=== PATIENT | female | born 1990 | race American Indian/Alaskan Native ===

== ENCOUNTER 2019-10-07 18:17 | Emergency (ER) | payer SELFPAY ==
[2019-10-07 18:37] VITALS: BP 136/82
--- NOTE | 2019-10-07 18:37 | Event Note ---
ED Screening Note Date of service: 10/07/19 Time: 18:34 ED Screening Note: This is a 29 y.o. F. that presents to the ER with vaginal bleeding. Reports spotting for 3 weeks that increased today. LMP 09/10/2019, A1 Recent positive home test. No care. This initial assessment/diagnostic orders/clinical plan/treatment(s) is/are subject to change based on patients health status, clinical progression and re- assessment by fellow clinical providers in the ED. Further treatment and workup at subsequent clinical providers discretion. Patient/guardian urged not to elope from the ED as their condition may be serious if not clinically assessed and managed. Initial orders include: Labs OB US
[2019-10-07 19:00] LABS: Basophils % (Auto) 0.8 % (0.0-1.8); Eosinophils # (Auto) 0.1 K/mm3 (0.0-0.4); Hemoglobin 11.3 gm/dl (10.1-14.3); Lymphocytes # (Auto) 2.5 K/mm3 (1.2-5.4); Lymphocytes % (Auto) 42.5 % (13.4-35.0); Mean Corpuscular HGB Conc 33 % (30-34); Mean Corpuscular Volume 75 fl (79-97); Monocytes # (Auto) 0.5 K/mm3 (0.0-0.8); Monocytes % (Auto) 8.7 % (0.0-7.3); Platelet Count 380 K/mm3 (140-440); Red Blood Count 4.52 M/mm3 (3.65-5.03); Red Cell Distribution Width 18.2 % (13.2-15.2)
[2019-10-07 20:27] LABS: Bacteria,Urine 1+ /HPF (Negative); Bilirubin,Urine NEG (Negative); Blood,Urine LG (Negative); Color,Urine Yellow (Yellow); Mucus,Urine FEW /HPF; Protein,Urine <15 mg/dL mg/dL (Negative); Urobilinogen,Urine < 2.0 mg/dL (<2.0)
--- NOTE | 2019-10-07 20:47 | Emergency Department Report ---
ED Female HPI - General Chief complaint: Vaginal Bleeding Stated complaint: POSS MISCARRIAGE Time Seen by Provider: 10/07/19 18:34 Source: patient Mode of arrival: Ambulatory Limitations: No Limitations - History of Present Illness Initial comments: Patient is a A1 29-year-old -[place] female who presents to the ED with complaint of acute onset persistent suprapubic pressure, urinary frequency and urgency and vaginal spotting for the last 1 week, worse in the last 12 hours whereby she was having heavy vaginal bleeding with clots. Patient states that her last menstrual cycle was September 16 to the and that it is always regular. Patient unsure of what the etiology of the vaginal bleeding would be. Patient states that she is not on any control at this time. Patient denies dizziness, fever, chills, cough, abdominal pain, dysuria, vaginal discharge, low back pain, nausea and vomiting or cough and sore throat. MD Complaint: vaginal bleeding, pelvic pain, other (urinary ) -: Sudden, week(s) (1) Location: suprapubic, other (vaginal) Radiation: non-radiating Severity: mild Severity scale (0 -10): 1 Quality: cramping, dull Consistency: intermittent Improves with: none Worsens with: none Are you Now?: No Associated Symptoms: denies other symptoms, vaginal bleeding, abdominal pain (suprapubic pressure), hematuria. denies: vaginal discharge, nausea/vomiting, fever/chills, headaches, loss of appetite, dysuria, rash, seizure, shortness of breath, syncope, weakness - Related Data Sexually active: No : 3 Para: 2 A: 1 Previous Rx's Medication Instructions Recorded Last Taken Type Ibuprofen [Motrin] 800 mg PO Q8HR PRN #20 tablet 10/07/19 Unknown Rx cephALEXin [Keflex] 500 mg PO Q8HR #30 cap 10/07/19 Unknown Rx Allergies Allergy/AdvReac Type Severity Reaction Status Date / Time No Known Allergies Allergy Unverified 10/07/19 18:37 ED Review of Systems ROS: Stated complaint: POSS MISCARRIAGE Other details as noted in HPI Constitutional: denies: chills, fever Eyes: denies: eye pain, eye discharge, vision change ENT: denies: ear pain, throat pain Respiratory: denies: cough, shortness of breath, wheezing Cardiovascular: denies: chest pain, palpitations Endocrine: no symptoms reported Gastrointestinal: abdominal pain (suprapubic pressure). denies: nausea, diarrhea Genitourinary: hematuria, abnormal menses (vaginal bleeding). denies: urgency, dysuria, discharge Musculoskeletal: denies: back pain, joint swelling, arthralgia Skin: denies: rash, lesions Neurological: denies: headache, weakness, paresthesias Psychiatric: denies: anxiety, depression Hematological/Lymphatic: denies: easy bleeding, easy bruising ED Past Medical Hx - Past Medical History Previous Medical History?: No - Social History Smoking Status: Never Smoker Substance Use Type: None - Medications Home Medications: Home Medications Medication Instructions Recorded Confirmed Last Taken Type Ibuprofen [Motrin] 800 mg PO Q8HR PRN #20 tablet 10/07/19 Unknown Rx cephALEXin [Keflex] 500 mg PO Q8HR #30 cap 10/07/19 Unknown Rx ED Physical Exam - General Limitations: No Limitations General appearance: alert, in no apparent distress - Head Head exam: Present: atraumatic, normocephalic, normal inspection - Eye Eye exam: Present: normal appearance, PERRL, EOMI Pupils: Present: normal accommodation - ENT ENT exam: Present: normal exam, normal orophraynx, mucous membranes moist, TM's normal bilaterally, normal external ear exam - Neck Neck exam: Present: normal inspection, full ROM - Respiratory Respiratory exam: Present: normal lung sounds bilaterally. Absent: respiratory distress, wheezes, rales, rhonchi, chest wall tenderness, accessory muscle use, decreased breath sounds - Cardiovascular Cardiovascular Exam: Present: regular rate, normal rhythm, normal heart sounds. Absent: systolic murmur, diastolic murmur, rubs, gallop - GI/Abdominal GI/Abdominal exam: Present: soft, normal bowel sounds. Absent: tenderness, guarding, hyperactive bowel sounds, hypoactive bowel sounds - Bi-manual exam: Present: other (Pelvic exam deferred, patient prefers [facility]) - Extremities Exam Extremities exam: Present: normal inspection, full ROM, normal capillary refill - Back Exam Back exam: Present: normal inspection, full ROM. Absent: tenderness, CVA tenderness (R), CVA tenderness (L), muscle spasm, paraspinal tenderness - Neurological Exam Neurological exam: Present: alert, oriented X3, CN II-XII intact, normal gait, reflexes normal - Psychiatric Psychiatric exam: Present: normal affect, normal mood, anxious - Skin Skin exam: Present: warm, dry, intact, normal color. Absent: rash ED Course Vital Signs 10/07/19 18:34 Temperature 98.0 F Pulse Rate 82 Respiratory 16 Rate Blood Pressure 136/82 O2 Sat by Pulse 98 Oximetry ED Medical Decision Making - Lab Data Result diagrams: 10/07/19 18:44 - Medical Decision Making This is a A1 29-year-old -[place] female who presents to the ED with complaint of acute onset persistent suprapubic pressure, urinary frequency and urgency and vaginal spotting for the last 1 week, worse in the last 12 hours whereby she was having heavy vaginal bleeding with clots. In the ED, patient is alert and oriented x3 and is not in distress. Lab test results were reviewed and are all nonactionable including serum hCG qualitative and quantitative tests which are negative. Urinalysis shows acute urinary tract infection. Patient was discharged home on medications including antibiotics for UTI and was advised to follow-up with her [facility] physician in 3 to 5 days for reevaluation. Patient was given a contact for a local [facility] physician on-call Dr. Tomas for follow- up. Patient was advised to return to the ED immediately if symptoms get worse. - Differential Diagnosis Dyfunctional Uterine Bleeding; ; UTI; Ovarian cyst Critical care attestation.: If time is entered above; I have spent that time in minutes in the direct care of this critically ill patient, excluding procedure time. ED Disposition Clinical Impression: Acute urinary tract infection, Dysfunctional uterine hemorrhage Disposition: - TO HOME OR SELFCARE Is pt being admited?: No Does the pt Need Aspirin: No Condition: Stable Instructions: Urinary Tract Infection in Women (ED), Dysfunctional Uterine Bleeding (ED) Additional Instructions: Take medication with food, drink plenty of fluids and follow-up with your [facility] physician in 5 to 7 days for reevaluation. Return to the ED immediately if symptoms get worse. Contact Dr. Tomas, the [facility] physician field contractor in the next 24 to 48 hours to schedule a follow-up appointment. Return to the ED immediately if symptoms get worse. Prescriptions: cephALEXin [Keflex] 500 mg PO Q8HR #30 cap Ibuprofen [Motrin] 800 mg PO Q8HR PRN #20 tablet PRN Reason: Pain , Severe (7-10) Referrals: ENRRIQUE TOMAS MD [Staff Physician] - 3-5 Days Time of Disposition: 20:45 Print Language: [place]
== END 2019-10-07 21:05 | disposition home or self-care (01) ==
LOC: ED 18:17
DX: N39.0 Urinary tract infection, site not specified (principal); N93.8 Other specified abnormal uterine and vaginal bleeding
CPT/HCPCS: 36415; 81001; 84702; 84703; 85025; 86900; 86901; 87086; 99283